=== PATIENT | female | born 1950 | race Caucasian/White ===

== ENCOUNTER 2019-01-03 14:58 | Emergency (ER) | payer MEDICARE, OTHER ==
[2019-01-03 19:20] LABS: ADD MAN DIFF? NO
[2019-01-03 19:22] LABS: WHITE BLOOD COUNT 7.3 10^3/ul (4.8-10.8)
[2019-01-03 19:22] LABS: BASOPHILS % 0.4 % (0.0-2.0); EOSINOPHILS # 0.1 10^3/ul (0.0-0.5); EOSINOPHILS % 1.4 % (0.0-7.0); HEMATOCRIT 44.3 % (37.0-47.0); HEMOGLOBIN 14.5 g/dl (12.0-16.0); LYMPHOCYTES # 1.9 10^3/ul (0.8-2.9); LYMPHOCYTES % 26.2 % (15.0-51.0); MEAN CORPUSCULAR HEMOGLOBIN 29.6 pg (29.0-33.0); MEAN CORPUSCULAR HGB CONC 32.7 g/dl (32.0-37.0); MEAN CORPUSCULAR VOLUME 90.4 fl (82.0-101.0); MEAN PLATELET VOLUME 10.4 fl (7.4-10.4); MONOCYTE # 0.5 10^3/ul (0.3-0.9); MONOCYTES % 7.4 % (0.0-11.0); NEUTROPHIL # 4.7 10^3/ul (1.6-7.5); NEUTROPHILS % 64.1 % (39.0-77.0); PLATELET COUNT 168 10^3/UL (140-415); RED CELL DISTRIBUTION WIDTH 13.2 % (11.5-14.5)
[2019-01-03] MEDS: KETOROLAC 15 MG INJ IV (19:23)
[2019-01-03 19:43] LABS: ANION GAP 8 (5-13); BLOOD UREA NITROGEN 21 mg/dl (7-20); CALCIUM 9.9 mg/dl (8.4-10.2); CARBON DIOXIDE 29 mmol/L (21-31); CHLORIDE 105 mmol/L (97-110); CREATININE 0.76 mg/dl (0.44-1.00); Estimated GFR > 60 mL/min (>60); GLUCOSE 90 mg/dl (70-220); POTASSIUM 4.2 mmol/L (3.5-5.1); SODIUM 142 mmol/L (135-144)
[2019-01-03 19:45] LABS: D-DIMER 542.82 ng/ml (<460)
[2019-01-03 19:55] LABS: TROPONIN-I < 0.012 ng/ml (0.000-0.120)
[2019-01-03] MEDS: SOD CHLORIDE 0.9% 1,000 ML IV (22:00)
[2019-01-03 22:46] LABS: TROPONIN-I < 0.012 ng/ml (0.000-0.120)
[2019-01-03] MEDS: SOD CHLORIDE 0.9% 100 ML (23:19)
[2019-01-03] MEDS: IOHEXOL 350MG/ML 50 ML BTL (23:20)
[2019-01-03] MEDS: IOHEXOL 100 ML (23:20)
== END 2019-01-03 23:57 | disposition home or self-care (01) ==
LOC: E/R 14:58
DX: M54.6 Pain in thoracic spine (principal); Z85.3 Personal history of malignant neoplasm of breast
CPT/HCPCS: 36415; 71045; 71275; 80048; 84484; 85025; 85378; 93005; 96374; 99285-25